=== PATIENT | male | born 1950 | race Caucasian/White ===

== ENCOUNTER → 2017-09-23 | Outpatient (CLI) | payer OTHER ==
--- NOTE | 2017-09-23 10:52 | Diagnostic Imaging Report ---
PROCEDURE:LIVER ULTRASOUND COMPARISON:None. INDICATIONS:Hepatitis C TECHNIQUE: Grayscale and color Doppler ultrasound liver FINDINGS: Imaged portions of the abdominal aorta, inferior vena cava, pancreas and right kidney are normal. Right liver span 18.5 cm. Echogenic parenchyma with a nodular contour. No conspicuous mass. Portal vein diameter 1.2 cm; normal flow direction. Cholelithiasis. Gallbladder wall thickness 0.5 cm. No pericholecystic fluid. No sonographic Mcdonnell's sign. Common bile duct diameter 0.2 cm. CONCLUSION: 1. Hepatomegaly with nodular contour in keeping with a combination of cirrhosis and steatosis. 2. Nonspecific gallbladder wall thickening. Differential includes sequela of cirrhosis or chronic cholecystitis. Dictated by: Jules Gorves M.D. on 09/23/2017 at 10:52 Electronically approved by: Jules Groves M.D. on 09/23/2017 at 10:52
== END | disposition home or self-care (01) ==
LOC: US 08:35
PROVIDERS: ATTEND Internal Medicine Gastroenterology
DX: B19.20 Unspecified viral hepatitis C without hepatic coma (principal); K74.60 Unspecified cirrhosis of liver; K76.0 Fatty (change of) liver, not elsewhere classified
CPT/HCPCS: 76705